=== PATIENT | male | born 1940 | race Caucasian/White ===

== ENCOUNTER 2017-05-21 06:37 | Day surgery (SDC) | payer OTHER ==
[2017-05-21] MEDS ORDERED: VERSED ONE (07:55)
[2017-05-21] MEDS ORDERED: DIPRIVAN 20 ML VIAL IVP ONE (07:55)
[2017-05-21 10:01] VITALS: BP 133/67; TEMP 96.6
--- NOTE | 2017-05-22 09:25 | OP ---
INDICATIONS FOR PROCEDURE: 77 year old gentleman presents for colonoscopy exam. He has a history of adenomatous polyps with last colonoscopy screening three years ago. He has a family history of colon polyps involving a brother. MEDICATIONS: SEE ANESTHESIA NOTES. PROCEDURE: COLONOSCOPY/SNARE POLYPECTOMY. REPORT: The risks, benefits, alternatives and limitations were discussed in detail with the patient. Informed consent was obtained. After adequate sedation was achieved, a digital rectal exam revealed good tone, no masses. The colonoscope was introduced into the rectum and advanced under direct visual guidance to the cecum. The cecum was identified by the appendiceal orifice and IC valve. I then slowly withdrew the scope in a circumferential manner and examined the mucosa quite carefully. I looked on the proximal and distal sides of folds and flexures as best as possible and I was able to retroflex the scope in the right and left colon to increase visualization. In cecum there is a diminutive 4-5mm polyp. I destroyed this using a snare. There are a few diverticuli in the ascending colon. There were multiple small and large mouth diverticuli scattered throughout the entire left colon. On retroflex view of the anal canal there is a small internal hemorrhoids. The prep was adequate to identify polyps greater than 6mm. There was a little bit a retained stool here and there. I washed and suctioned this off as best as possible as I advanced the scope and as I withdrew. The patient tolerated the procedure well with stable vital signs and pulse oximetry throughout. The withdraw time was 11 minutes and 23 seconds. IMPRESSION: 1. Pandiverticulosis 2. Diminutive colon polyp destroyed 3. Internal hemorrhoid RECOMMENDATIONS: 1. High fiber diet 2. Office visit as needed 3. Given his advanced age and health I suggested future colonoscopies on an as needed only basis. CC: Dr. Chad AHUMADA
== END 2017-05-21 09:40 | disposition home or self-care (01) ==
LOC: SURG 06:37
PROVIDERS: ATTEND Internal Medicine Gastroenterology
DX: Z09 Encounter for follow-up examination after completed treatment for conditions other than malignant neoplasm (principal); Z86.010 Personal history of colon polyps; K63.5 Polyp of colon; Z83.71 Family history of colonic polyps; K57.30 Diverticulosis of large intestine without perforation or abscess without bleeding; K64.8 Other hemorrhoids

== ENCOUNTER 2017-07-29 09:36 | Outpatient (CLI) | payer OTHER ==
--- NOTE | 2017-07-29 10:56 | DI ---
Exam: Two x-rays of the pelvis. Comparison: None available. Reason for exam: Pelvic pain. FINDINGS: The pelvic ring is intact. 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 No evidence of dis location. The femoral heads articulate with the acetabula bilaterally. Osseous irregularities are s een adjacent to the greater trochanter of the left hip. Impression: 1. Osseous irregularities adjacent to the greater trochanter can be seen with avulsion fractures, deg enerative disease, and previous trauma. If clinical concern exists, further evaluation may be perfor med. 2. No evidence of dislocation. The and either hip. 3. The pelvic ring appears intact
== END 2017-07-29 09:37 | disposition home or self-care (01) ==
LOC: RAD 09:36
PROVIDERS: ATTEND Family Medicine
DX: R10.2 Pelvic and perineal pain (principal)